=== PATIENT | male | born 1955 | race Two or more races ===

== ENCOUNTER → 2021-01-02 | Outpatient (CLI) | payer MEDICARE ==
[~2021-01-02] MED LIST: HYDR-2761 PO; ORPH100T PO
--- NOTE | 2021-01-02 17:11 | KCIC ---
EXAM: CT ABDOMEN/PELVIS WITHOUT CONTRAST. HISTORY: Abdominal hernia. TECHNIQUE: Computed tomography of the abdomen and pelvis was performed without intravenous contrast. One or more of the following individualized dose reduction techniques were utilized for this examinat ion: 1. Automated exposure control. 2. Adjustment of the mA and/or kV according to patient size. 3. Use of iterative reconstruction technique. COMPARISON: None. FINDINGS: Lung windows through the visualized portions of the bases reveal a calcified granuloma in t he left lower lobe. Bone windows reveal no suspicious lesions. There is grade 1 anterolisthesis at L5 -S1 from bilateral L5 pars interarticularis defects. There is moderate to severe degenerative disc di sease throughout the lumbar spine. There is anterior ankylosis across the thoracolumbar junction. Hypoattenuation of the hepatic parenchyma indicates mild to moderate diffuse hepatic steatosis. There are calcified granulomas in the liver and spleen. The gallbladder is surgically absent. The pancreas , adrenal glands and right kidney are unremarkable. There is a 2 mm calculus in the left renal lower pole. There are no ureteral calculi. The prostate is moderately enlarged. Small calcifications are noted along the dome of the bladder wit hout an associated mass. There are no pathologically enlarged lymph nodes. The appendix is not inflam ed. There is no small bowel obstruction. A small umbilical hernia contains only fat. IMPRESSION: 1. Small umbilical hernia containing only fat. 2. Mild to moderate diffuse hepatic steatosis. 3. 2 mm left renal calculus. 4. Grade 1 anterolisthesis at L5-S1 from bilateral L5 pars interarticularis defects. Electronically signed by: Christy Herrera MD (01/02/2021 5:09 PM) [id number]
== END ==
LOC: KCIC CT 08:18
PROVIDERS: ATTEND Family Medicine
DX: K76.0 Fatty (change of) liver, not elsewhere classified (principal); K42.9 Umbilical hernia without obstruction or gangrene; J84.10 Pulmonary fibrosis, unspecified; M51.37 Other intervertebral disc degeneration, lumbosacral region; N20.0 Calculus of kidney; N40.0 Benign prostatic hyperplasia without lower urinary tract symptoms
CPT/HCPCS: 74176

== ENCOUNTER 2021-01-03 01:41 | Emergency (ER) | payer MEDICARE ==
[~2021-01-03] VITALS: Ht 177.8 cm; Wt 100.0 kg
--- NOTE | 2021-01-03 02:05 | PHYS DOC ---
General Adult EDM: Chief Complaint: TESTICULAR PAIN OR INJURY HPI: HPI: Patient is a 65 year old male who presents to the ED via EMS complaining of right-sided testicular pain that began couple hours ago. He states that he has pain in his groin region on the right side and it radiates down his leg. Cirilo silva states that he had a CT scan yesterday that showed an umbilical hernia and kidney stone. Patient notes that his pain is slightly relieved with ice and notes that movement exacerbates his pain. Patient denies penile discharge, dysuria, or any other signs or symptoms. No other complaints at this time. Review of Systems: Review of Systems: Constitutional: Denies fever or chills Eyes: Denies redness or eye pain HENT: Denies nasal congestion or sore throat Respiratory: Denies cough or shortness of breath Cardiovascular: Denies chest pain or palpitations GI: Denies abdominal pain, nausea, or vomiting : Denies dysuria or hematuria Musculoskeletal: Denies back pain or joint pain Integument: Denies rash or skin lesions Neurologic: Denies headache, focal weakness or sensory changes Complete systems were reviewed and found to be within normal limits, except as documented in this note. Physical Exam: PE: Constitutional: Well developed, well nourished, no acute distress, non-toxic appearance HENT: Normocephalic, atraumatic Eyes: PERRL, EOMI, conjunctiva normal, no discharge Neck: Normal range of motion, no tenderness, supple Lungs & Thorax: No respiratory distress, equal chest rise and fall Abdomen: Soft, no tenderness Skin: Warm, dry, no erythema, no rash Back: No tenderness, no CVA tenderness Extremities: No tenderness, ROM intact, no edema Neurologic: Alert and oriented X 3, normal motor function, normal sensory function, no focal deficits noted Psychologic: Affect normal, judgment normal : No scrotal swelling, no rash, no penile discharge, no testicular or epidi dymal swelling pain with palpation of inguinal ligament however no hernia appreciated EKG: EKG: [] Radiology/Procedures: Radiology/Procedures: [] Course & Med Decision Making: Course & Med Decision Making Patient is a 65 year old male who presents to the ED via EMS complaining of rig ht-sided testicular pain that began couple hours ago. He states that he has pain in his groin region on the right side and it radiates down his leg. Patient states that he had a CT scan yesterday that showed an umbilical hernia and kidney stone. Patient's urinalysis was negative. After physical exam, there is no hernia appreciated in the inguinal region follow-up with physical medicine and rehabilitation was recommended for potential sciatica. Was given instructions for pain control and is in agreement. Patient stable for discharge with outpatient follow-up with PCP. Discussed findings and plan with patient, who acknowledges understanding and agreement. Jacques Disclaimer: Jacques Disclaimer: This electronic medical record was generated, in whole or in part, using a voice recognition dictation system. Departure Departure Impression: Primary Impression: Sciatica of right side Disposition: 01 DC HOME SELF CARE/HOMELESS Condition: STABLE Referrals: RAQUEL FISHER MD (PCP) CRISSY STEPHENS MD Patient Instructions: Sciatica, Uhrz-[id number] Scripts Hydrocodone Bit/Acetaminophen (HYDROCODONE-APAP 5-325 ) 1 Tab Tablet 0.5-1 TAB PO PRN Q6HRS PRN for PAIN, #14 TAB 0 Refills Prov: JAYCEE MCKEON DO 01/03/21 Orphenadrine Citrate (ORPHENADRINE CITRATE) 100 Mg Tablet.er 1 TAB PO BID PRN for MUSCLE PAIN, #14 TAB Prov: JAYCEE MCKEON DO 01/03/21 JAYCEE MCKEON DO Jan 03, 2021 02:05
[2021-01-03 02:15] LABS: BILIRUBIN,URINE NEGATIVE (NEG); CLARITY,URINE CLEAR; COLOR,URINE YELLOW; NITRITE,URINE NEGATIVE (NEG); PH,URINE 5.5 (<5.0-8.0); PROTEIN,URINE NEGATIVE (NEG-TRACE); UROBILINOGEN,URINE 0.2 mg/dL (0.2 mg/dL)
[2021-01-03 02:21] LABS: BACTERIA,URINE 0 /HPF (0-FEW); RBC,URINE 0 /HPF (0-2); WBC,URINE 0 /HPF (0-4)
[2021-01-03 02:26] VITALS: BP 132/65
[2021-01-03] MEDS ORDERED: HYDR-2761 PO (03:09)
[2021-01-03] MEDS ORDERED: ORPH100T PO (03:09)
[2021-01-03] MEDS ORDERED: DEXAMETHASONE 4 MG TABLET PO ONE (03:30)
[2021-01-03] MEDS ORDERED: ORPHENADRINE CITRATE 60 MG/2 ML VIAL. IM ONE (03:30)
[2021-01-03] MEDS ORDERED: HYDROcodone/APAP 5/325MG 1 TAB TABLET PO ONE (03:30)
== END 2021-01-03 03:52 | disposition home or self-care (01) ==
LOC: ER 01:41
DX: M54.31 Sciatica, right side (principal)
CPT/HCPCS: 81001; 96372; 99283; J2360

== ENCOUNTER → 2021-01-08 | Outpatient (CLI) | payer MEDICARE ==
[2021-01-03 02:26] VITALS: BP 132/65
--- NOTE | 2021-01-08 11:50 | KCIC ---
MR LUMBAR SPINE [id number] History: Reason: DYSURIA / Spl. Instructions: / History: RLE pain as well as pain in rt testicle. Technique: Multiplanar, multi sequential MR imaging was performed of the lumbar spine. Comparison: None Findings: Grade 1 anterolisthesis L5 on S1. Normal vertebral body height. No fracture. Mild multilevel degenera tive endplate edema most prominent L2-L3. Conus terminates at the normal location. No evidence of nerve root clumping. Tiny bilateral renal cysts. L1-L2: Small disc bulge. Mild facet arthropathy. No canal or neuroforaminal narrowing. L2-L3: Small disc bulge. Moderate facet arthropathy. No canal narrowing. Mild subarticular recess na rrowing. Mild bilateral neuroforaminal narrowing, right greater than left. L3-L4: Small disc bulge. Moderate facet arthropathy. No canal narrowing. No neuroforaminal narrowing . L4-L5: Central disc protrusion. No canal narrowing. Moderate facet arthropathy. Mild bilateral neuro foraminal narrowing. L5-S1: Anterolisthesis. Bilateral L5 spondylolysis. Advanced facet arthropathy. No canal narrowing. Mild to moderate neuroforaminal narrowing. Impression: 1. Multilevel lumbar spondylosis most prominent L5-S1. 2. Grade 1 anterolisthesis L5 on S1 due to bilateral L5 spondylolysis. 3. Neuroforaminal narrowing most prominent L5-S1. Electronically signed by: Joshua Lanza DO (01/08/2021 11:48 AM) [id number]
== END ==
LOC: KCIC MRI 07:52
PROVIDERS: ATTEND Family Medicine
DX: M47.817 Spondylosis without myelopathy or radiculopathy, lumbosacral region (principal); M48.07 Spinal stenosis, lumbosacral region; M43.17 Spondylolisthesis, lumbosacral region; R30.0 Dysuria; R30.9 Painful micturition, unspecified; E29.1 Testicular hypofunction; N28.1 Cyst of kidney, acquired
CPT/HCPCS: 72148